=== PATIENT | male | born 1985 | race Caucasian/White ===

== ENCOUNTER 2017-03-28 20:37 | Emergency (ER) | payer MEDICARE, MEDICAID ==
[~2017-03-28] VITALS: Ht 167.6 cm; Wt 131.3 kg
[~2017-03-28 20:37] MED LIST: AC325T PO; AZIT250T5 PO; CALA120L5 TOP; CLIN-79 PO; CLON0.1T PO; CYCL10TA45 PO; GUAI473L29 PO; LEVO500T16 PO; NF-TORA10 PO; No home meds; OMEP40CA36 PO; PROP40TA5 PO; QTP100T PO; TRAZ100T92 PO; VENL225T PO
[2017-03-28] MEDS ORDERED: CLON0.3T PO (20:58)
[2017-03-28 21:06] VITALS: BP 126/81
== END 2017-03-28 21:07 | disposition home or self-care (01) ==
LOC: ED 20:39
DX: S81.812A Laceration without foreign body, left lower leg, initial encounter (principal); W22.09XA Striking against other stationary object, initial encounter; Y93.39 Activity, other involving climbing, rappelling and jumping off
CPT/HCPCS: 12005; 99282; 99283